=== PATIENT | female | born 1955 | race Hispanic/Latino ===

== ENCOUNTER 2019-06-18 10:45 | Emergency (ER) | payer BC | END 2019-06-18 11:25 | disposition home or self-care (01) | LOC: EDH 10:45 | DX: Z02.79 Encounter for issue of other medical certificate (principal) | CPT/HCPCS: 99281 ==

== ENCOUNTER 2023-05-26 06:57 | Day surgery (SDC) | payer OTHER, MEDICARE ==
[2023-05-20 10:45] LABS: BASOPHILS % (AUTO) 0.5 % (0.0-5.0); EOSINOPHILS % (AUTO) 7.3 % (0.0-8.0); HEMATOCRIT 36.7 % (36-48); LYMPHOCYTES % (AUTO) 38.6 % (21.0-51.0); MEAN CORPUSCULAR HEMOGLOBIN 26.1 pg (27.0-33.0); MEAN CORPUSCULAR HGB CONC 31.6 g/dL (32.0-36.0); MEAN CORPUSCULAR VOLUME 82.5 fL (79-99); MONOCYTES % (AUTO) 8.4 % (3.0-13.0); NEUTROPHILS % (AUTO) 44.9 % (40.0-77.0); PLATELET COUNT (AUTO) 320 K/uL (130-400); RED BLOOD CELL COUNT(AUTO) 4.45 MIL/uL (4.00-5.50); RED CELL DISTRIBUTION WIDTH 14.8 % (11.0-15.5); WHITE BLOOD COUNT (AUTO) 7.8 K/uL (4.8-10.8)
[2023-05-20 10:57] LABS: APPEARANCE,URINE CLEAR (CLEAR); BILIRUBIN,URINE NEGATIVE (NEGATIVE); COLOR,URINE LIGHT-YELLOW (YELLOW); GLUCOSE, URINE (UA) NEGATIVE (NEGATIVE); KETONES,URINE NEGATIVE (NEGATIVE); LEUKOCYTE ESTERASE ,URINE NEGATIVE Leu/uL (NEGATIVE); NITRATE,URINE NEGATIVE (NEGATIVE); PROTEIN,URINE NEGATIVE (NEGATIVE); UROBILINOGEN,URINE 0.2 mg/dL (0.2-1.0)
[2023-05-20 10:57] LABS: INR 0.93 (0.85-1.15); PROTHROMBIN TIME 10.5 SEC (9.6-11.6)
[2023-05-20 10:58] LABS: PARTIAL THROMBOPLASTIN TIME 29.7 SEC (26.3-35.5)
[2023-05-20 11:04] LABS: BACTERIA,URINE RARE /HPF (None Seen); MUCUS,URINE RARE LPF (None Seen); SQUAMOUS EPITHELIAL CELL,UR RARE /HPF (0-2)
[2023-05-20 11:16] VITALS: BP 176/89
[2023-05-20 11:17] LABS: CREATININE 0.7 mg/dL (0.5-1.5); POTASSIUM 3.7 mmol/L (3.5-5.1)
[~2023-05-26] VITALS: Ht 157.5 cm; Wt 88.6 kg
[2023-05-26] VITALS (21 sets, daily range): BP systolic 109–158; BP diastolic 50–82
[~2023-05-26 06:57] MED LIST: FISH1CAP27 PO; LOSA25TA41 PO
[2023-05-26] MEDS ORDERED: LACTATED RINGERS 1000ML 1,000 ML IV ONE (07:47)
[2023-05-26] MEDS ORDERED: CEFAZOLIN SODIUM 2 GM VIAL ONE (07:47)
[2023-05-26] MEDS ORDERED: DEXAMETHASONE SOD PHOSPHATE 10MG/ML 1ML VIAL ONE (08:53)
[2023-05-26] MEDS ORDERED: LIDOCAINE PF 100MG/5ML (2%) SYRINGE 5ML ONE (08:53)
[2023-05-26] MEDS ORDERED: MIDAZOLAM HCL 1 MG/ML 2ML VIAL ONE (08:53)
[2023-05-26] MEDS ORDERED: PROPOFOL 10 MG/ML 20ML VIAL IV ONE (08:54)
[2023-05-26] MEDS ORDERED: ONDANSETRON 4MG INJ ONE (08:54)
[2023-05-26] MEDS ORDERED: FENTANYL CITRATE PF 50 MCG/1 ML 2ML VIAL ONE (08:56)
[2023-05-26] MEDS ORDERED: CEFAZOLIN SODIUM 2 GM VIAL IVPB ONE (09:15)
[2023-05-26] MEDS ORDERED: CEFAZOLIN SODIUM 1 GM VIAL ONE (09:23)
[2023-05-26] MEDS ORDERED: EPHEDRINE SULFATE 50 MG/ML AMPULE ONE (09:31)
[2023-05-26] MEDS ORDERED: LIDOCAINE 2%-EPI 1:200,000 20 ML VIAL IJ ONE (09:35)
[2023-05-26] MEDS ORDERED: ESTROGENS,CONJUGATED 0.625 MG/GM 42.5 GM VAG CRM VG ONE ×2 (09:56→10:13)
[2023-05-26] MEDS ORDERED: KETOROLAC 30MG VIAL (30MG/ML) ONE (10:06)
== END 2023-05-26 12:30 | disposition home or self-care (01) ==
LOC: DAH 06:57
PROVIDERS: ATTEND Urology
DX: N39.3 Stress incontinence (female) (male) (principal); Z20.822 Contact with and (suspected) exposure to COVID-19; E66.9 Obesity, unspecified; Z79.01 Long term (current) use of anticoagulants; Z79.899 Other long term (current) drug therapy
CPT/HCPCS: 80048; 85025; 85610; 85730; 87088; 87426; 81001; 36415; 71045; 93005; 57288; A6260; A4663; J7120 ×2; A4215 ×2; A4344; C1771; J3010; J0690 ×3; J1100; J2001; J3490 ×2; J2250; J2704; J2405; J1885; A4649; A4930; A4223; A4222; A4221; A4600

== ENCOUNTER → 2023-11-11 | Outpatient (CLI) | payer OTHER, MEDICARE ==
[2023-11-11 08:20] LABS: BASOPHILS # (AUTO) 0.04 K/uL (0.00-0.20); BASOPHILS % (AUTO) 0.5 % (0.0-5.0); EOSINOPHILS # (AUTO) 0.29 K/uL (0.00-0.70); EOSINOPHILS % (AUTO) 3.7 % (0.0-8.0); HEMATOCRIT 41.9 % (36-48); IMMATURE GRANULOCYTE ABSOLUTE 0.03 K/uL (0-1); LYMPHOCYTES # (AUTO) 2.7 K/uL (1.0-4.8); LYMPHOCYTES % (AUTO) 33.8 % (21.0-51.0); MEAN CORPUSCULAR HEMOGLOBIN 26.2 pg (27.0-33.0); MEAN CORPUSCULAR HGB CONC 30.8 g/dL (32.0-36.0); MONOCYTES # (AUTO) 0.7 K/uL (0.1-1.0); MONOCYTES % (AUTO) 8.4 % (3.0-13.0); NEUTROPHILS # (AUTO) 4.2 K/uL (1.8-7.7); NEUTROPHILS % (AUTO) 53.2 % (40.0-77.0); PLATELET COUNT (AUTO) 280 K/uL (130-400); RED BLOOD CELL COUNT(AUTO) 4.93 MIL/uL (4.00-5.50); RED CELL DISTRIBUTION WIDTH 21.3 % (11.0-15.5); WHITE BLOOD COUNT (AUTO) 7.9 K/uL (4.8-10.8)
== END | disposition home or self-care (01) ==
LOC: LAB 07:37
PROVIDERS: ATTEND Internal Medicine Gastroenterology
DX: D50.9 Iron deficiency anemia, unspecified (principal); B96.81 Helicobacter pylori [H. pylori] as the cause of diseases classified elsewhere
CPT/HCPCS: 36415; 85025